=== PATIENT | female | born 1960 | race Caucasian/White ===

== ENCOUNTER 2024-11-21 10:24 | Day surgery (SDC) | payer BC ==
[2024-11-18 12:03] LABS: Absolute Lymphocytes (CBC) 1.5 K/uL (0.7-4.9); Absolute Monocytes 0.5 K/uL (0.1-1.3); Absolute Neutrophil 3.3 K/uL (1.8-8.0); Basophils % 0.5 % (0-1.3); Eosinophils % 0.6 % (0-4.4); Hematocrit 38.3 % (36.0-45.0); Hemoglobin 13.1 g/dL (12.0-15.0); Lymphocytes % 27.4 % (15.3-44.8); MCHC 34.1 g/dL (32.0-36.0); MPV 8.6 fL (7.6-11.3); Monocytes % 9.4 % (3.3-12.3); Neutrophils % 62.1 % (41.7-73.7); Nucleated Red Blood Cells % 0.1 % (0-0); Platelets 213 thou/uL (152-406); RBC Red Blood Cell Count 4.68 M/uL (3.86-4.86); Red Cell Distribution Width 14.7 % (12.1-15.2)
[2024-11-18 12:16] LABS: Anion Gap 6.8 mEq/L (5.0-15.0); Potassium 4.8 mEq/L (3.5-5.1)
[2024-11-21] MEDS: Ringers Lactate 1,000 ML IV ONE (10:45)
[2024-11-21] MEDS ORDERED: LIDOCAINE 1% MPF 5 ML VIAL ONE (11:11)
[2024-11-21] MEDS ORDERED: propofoL 200 MG/20 ML VIAL IV ONE (11:11)
[2024-11-21 11:20] VITALS: O2SAT 99
[2024-11-21 13:00] VITALS: BP 152/66; TEMP 97
--- NOTE | 2024-11-22 12:55 | EKG ---
Test Date: 2024-11-18 Test Time: 13:07:30 Classifier Tender: MEASUREMENT RESULTS: Intervals: Rate: 61 VT: 154 QRSD: 68 QT: 420 QTc: 422 [place]: P: 47 VT: 154 QRS: 43 T: 53 INTERPRETIVE STATEMENTS: Normal sinus rhythm Low voltage QRS Cannot rule out Anterior infarct, age undetermined Abnormal ECG No previous ECG available for comparison Electronically Signed On 11-22-24 12:47:08 [employer]TER by Derrell Valencia
== END 2024-11-21 11:22 | disposition home or self-care (01) ==
LOC: OR 10:24
PROVIDERS: ATTEND Surgery
PROC: 0DJD8ZZ Inspection of Lower Intestinal Tract, Via Natural or Artificial Opening Endoscopic (ICD-10-PCS; principal; 2024-11-21 12:00)
DX: Z12.11 Encounter for screening for malignant neoplasm of colon (principal); K57.30 Diverticulosis of large intestine without perforation or abscess without bleeding; K64.8 Other hemorrhoids
CPT/HCPCS: 93005; 85025; 80048; 36415; 45378; J2704; J2003; J7120